=== PATIENT | female | born 1950 | race Hispanic/Latino ===

== ENCOUNTER 2016-12-31 19:03 | Emergency (ER) | payer BC, MEDICARE ==
[2016-12-31 19:04] VITALS: BMI 42.0
[2016-12-31 19:19] VITALS: TEMP 97.4
[2016-12-31] MEDS ORDERED: TDAP Vaccine 0.5 mL Syr IM ONE (19:45)
--- NOTE | 2016-12-31 21:18 | ED PDOC ---
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 Patient reports she tripped and fell, hitting the back of her head. She notes posterior head laceration. She denies loss of consciousness, vomiting, or headache. Time/Duration: 4-6 hours Symptom Onset: Sudden Activities at Onset: Rest Context: Tripped Past Medical History - Provider Review Nursing Documentation Reviewed: Yes - Infectious Disease Hx of Infectious Diseases: None - Tetanus Immunization Tetanus Immunization: Unknown - Cardiac Hx Cardiac Disorders: No Hx Pacemaker: No - Pulmonary Hx Respiratory Disorders: No - Neurological Hx Neurological Disorder: No Hx Paralysis: No - HEENT Hx HEENT Disorder: No - Renal Hx Renal Disorder: No - Endocrine/Metabolic Hx Endocrine Disorders: Yes Hx Diabetes Mellitus Type 2: Yes - Hematological/Oncological Hx Blood Disorders: No Hx Blood Transfusions: No Hx Blood Transfusion Reaction: No Hx Cancer: Yes (history of left breast) - Integumentary Hx Dermatological Disorder: No - Musculoskeletal/Rheumatological Hx Musculoskeletal Disorders: Yes (RA) - Gastrointestinal Hx Gastrointestinal Disorders: Yes Hx Gastroesophageal Reflux: Yes - Genitourinary/Gynecological Hx Genitourinary Disorders: Yes Other/Comment: breast ca - Psychiatric Hx Anxiety: Yes Hx Depression: Yes Hx Substance Use: No - Surgical History Hx Appendectomy: Yes Hx Section: Yes 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) Other/Comment: left breast lumpectomy - Anesthesia Hx Anesthesia Reactions: No Hx Malignant Hyperthermia: No - Suicidal Assessment Feels Threatened In Home Enviroment: No Family/Social History - Physician Review Nursing Documentation Reviewed: Yes Family/Social History: Unknown Family HX Smoking Status: Never Smoked Hx Alcohol Use: No Hx Substance Use: No Hx Substance Use Treatment: No Allergies/Home Meds Allergies/Adverse Reactions: Allergies ciprofloxacin [From Cipro] Adverse Reaction (Verified 12/31/16 19:10) VOMITING ciprofloxacin HCl [From Cipro] Adverse Reaction (Verified 12/31/16 19:10) VOMITING codeine Adverse Reaction (Verified 12/31/16 19:10) VOMITING Home Medications: Home Meds Medication Instructions Recorded Confirmed Aspirin [Aspir 81] 81 mg PO DAILY 11/12/13 12/31/16 Celecoxib [Celebrex] 200 mg PO DAILY 11/12/13 12/31/16 DULoxetine [Cymbalta] 60 mg PO BID 11/12/13 12/31/16 Etanercept [Enbrel] 50 mg PO WED 11/12/13 12/31/16 Folic Acid 1 mg PO DAILY 11/12/13 12/31/16 Lorazepam [Ativan] 1 mg PO TID 11/12/13 12/31/16 Rosuvastatin Calcium [Crestor] 10 mg PO QAM 11/12/13 12/31/16 Vitamin D 1,000 iu PO QPM 11/12/13 12/31/16 Evening [place] Oil 2 tab PO HS 09/01/15 12/31/16 Glipizide [Glipizide ER] 2.5 mg PO QAM 09/01/15 12/31/16 Methotrexate 2.5 mg PO WED 09/01/15 12/31/16 Ranitidine HCl [Zantac 150] 150 mg PO BID 12/11/15 12/31/16 Physical Exam - Physical Exam Narrative Physical Exam (Text): 12/31/16 21:21 - Review of Systems Constitutional: Normal. absent: LOC, Fatigue, Weight Change, Fevers Eyes: Normal ENT: Normal Respiratory: Normal absent: SOB, Cough, Sputum Cardiovascular: Normal absent: Chest pain, Palpitations, Syncope Gastrointestinal: Normal absent: Abdominal pain, Diarrhea, Nausea, Vomiting Genitourinary: Normal. absent: Dysuria, Frequency, Hematuria Musculoskeletal: Normal. absent: Arthralgias, Back Pain, Neck Pain Skin: laceration to posterior head Neurological: Normal absent: Headache, Focal Weakness Endocrine: Normal Hemo/Lymphatic: Normal Psychiatric: Normal - Physical exam 1.5 cm posterior occipital laceration, no active bleeding, 4mm in depth. No nasal bone deformity or tenderness, no facial or jaw pain/swelling. No neck midline tenderness, thoracic and lumbar spine with no midline tenderness. Pt moving b/l upper and lower extremities without difficulty, 5/5 strength, with full active and passive ROM. Distal neurovasc fully intact. Abd soft/nt/ng, no hematomas, no peritoneal signs. Neg. pelvic rock. - Systems Exam Pupils: Present: PERRL Extroacular Muscles: Present: EOMI Conjunctiva: Present: Normal Mouth: Present: Moist Mucous Membranes Neck: Present: Normal Range of Motion. No: MIDLINE TENDERNESS, Paraspinal Tenderness Respiratory/Chest: Present: Clear to Auscultation, Good Air Exchange. No: Respiratory Distress, Accessory Muscle Use, Tachypneic Cardiovascular: Present: Regular Rate and Rhythm, Normal S1, S2, Peripheal Pulses Present. No: Murmurs Abdomen: Present: Normal Bowel Sounds. No: Tenderness, Distention, Peritoneal Signs, Rebound, Guarding Back: Present: Normal Inspection. No: Midline Tenderness, Paraspinal Tenderness Upper Extremity: Present: Normal Inspection. No: Cyanosis, Edema Lower Extremity: Present: Normal Inspection. No: Edema Neurological: Present: GCS=15, Speech Normal, cranial nerves II through XII fully intact with no cerebellar abnormality, neurosensory fully intact. No focal neurological deficits. Skin: Present: Warm, Dry, Normal Color. No: Rashes Lymphatic: Present: OX3, NI, NC Psychiatric: Present: Alert, Oriented x 3, Normal Insight, Normal Concentration Vital Signs Reviewed: Yes Vital Signs Temp Pulse Resp BP Pulse Ox 12/31/16 19:13 97.4 F L 104 H 19 108/73 99 Temperature: Afebrile Blood Pressure: Normal Pulse: Regular Respiratory Rate: Normal Appearance: Positive for: Well-Appearing, Non-Toxic, Comfortable Pain Distress: None Mental Status: Positive for: Alert and Oriented X 3 Finger Stick Blood Glucose: 75 Medical Decision Making ED Course and Treatment: 12/31/16 21:23 Impression: 66 year old female s/p mechanical fall. Physical exam revealed 1.5 cm posterior occipital laceration, no active bleeding, 4mm in depth. Plan: --CT Head --TDAP Vaccine -- Reassess and disposition Progress Notes: 12/31/16 21:26 PROCEDURE: LACERATION REPAIR Performed by the emergency provider Location: posterior occipital Length: 1.5 cm Description: clean wound edges, no foreign bodies Distal CMS: Normal. No deficits. Neurovascularly intact. Preparation: The wound was cleaned and the area was prepped and draped in the usual sterile fashion. Exploration: The wound was explored and no foreign bodies were found. Procedure: The wound was closed with melly. There was good approximation. Post-Procedure: Good closure and hemostasis. The patient tolerated the procedure well and there were no complications. CT Head pending. Patient in no distress. EKG: Ordered, reviewed, and independently interpreted the EKG. Rate : 67 BPM Rhythm : NSR Interpretation : No ST-segment elevations, normal axis, normal intervals. Interpreted by me. Comparison : No previous EKG for comparison. 12/31/16 21:36 IMPRESSION: No acute intracranial findings. Right suboccipital scalp hematoma/contusion with extension to the occipital scalp with minimal subcutaneous gas which is thought to relate to a left midline occipital laceration. Dictated and Authenticated by: Kenneth Berry MD Patient's has no focal neurological deficits on reevaluation. She denies having a headache. States that she feels comfortable being discharged home with outpatient follow-up. Pt states she understands to return to the ER right away for new or worsening symptoms or for inability to f/u with PMD or specialist as instructed. Patient states that she fully agrees with and understands discharge instructions. States that she agrees with the plan and disposition. Verbalized and repeated discharge instructions and plan. I have given the patient opportunity to ask any additional questions. - RAD Interpretation Radiology Orders: 12/31/16 19:46 HEAD W/O CONTRAST [CT] Stat - Medication Orders Current Medication Orders: Discontinued Medications Tetanus/Reduced Diphtheria/Acell Pertussis (Boostrix Vaccine Inj) 0.5 ml IM .ONCE ONE Stop: 12/31/16 19:46 Last Admin: 12/31/16 19:56 Dose: 0.5 ML [facility] Immunization Data Document 12/31/16 19:56 SF (Rec: 12/31/16 19:57 SF [facility] [id number] Immunization Data Vaccine Lot Number [id number] Vaccine Expiration Date 12/30/18 Site Given Left Deltoid Route Intramuscular - Scribe Statement The provider has reviewed the documentation as recorded by the Scribe Renetta Ag Provider Scribe Attestation: All medical record entries made by the Scribe were at my direction and personally dictated by me. I have reviewed the chart and agree that the record accurately reflects my personal performance of the history, physical exam, medical decision making, and the department course for this patient. I have also personally directed, reviewed, and agree with the discharge instructions and disposition. Disposition/Present on Arrival - Present on Arrival Any Indicators Present on Arrival: No History of DVT/PE: No History of Uncontrolled Diabetes: Yes Urinary Catheter: No History of Decub. Ulcer: No History Surgical Site Infection Following: None - Disposition Have Diagnosis and Disposition been Completed?: Yes Diagnosis: Head injury Disposition: HOME/ ROUTINE Disposition Time: 21:38 Patient Plan: Discharge Condition: GOOD Discharge Instructions (ExitCare): Head Injury (ED), Fall Prevention for Older Adults (ED) Additional Instructions: PLEASE RETURN TO THE EMERGENCY DEPARTMENT FOR NEW OR WORSENING SYMPTOMS. RETURN RIGHT AWAY IF YOU CANNOT FOLLOW UP WITH YOUR PRIMARY CARE DOCTOR, CLINIC, OR SPECIALIST IN 1-2 DAYS. PLEASE RETURN TO THE ER OR YOUR PRIMARY PHYSICIAN IN 7 DAYS FOR STAPLE REMOVAL KEEP WOUND CLEAN AND DRY APPLY ANTI-BACTERIAL OINTMENT TWICE A DAY (over the counter per pharmacy instructions) Please take [id number] Tylenol for pain
[2016-12-31 21:37] VITALS: BP 130/70; PULSE 90
[2016-12-31 21:44] VITALS: RESP 16; O2SAT 98
--- NOTE | 2017-01-01 08:14 | CT ---
PROCEDURE: CT HEAD WITHOUT CONTRAST. HISTORY: Fall COMPARISON: None available. TECHNIQUE: Axial computed tomography images were obtained through the head/brain without intravenous contrast. Radiation dose: Total exam DLP = 725.84 mGy-cm. FINDINGS: HEMORRHAGE: No intracranial hemorrhage. BRAIN: There are mild chronic microangiopathic changes. There is no mass, mass effect or abnormal extra-axial fluid collection. There is normal density in the larger dural venous sinuses. VENTRICLES: There is mild age-related global parenchymal volume loss and proportionate enlargement of the ventricles and cortical sulci. CALVARIUM: There is no calvarial fracture. There is a moderate right parieto-occipital scalp hematoma and left parietal laceration. . PARANASAL SINUSES: Predominantly clear. MASTOID AIR CELLS: Predominantly clear. OTHER FINDINGS: None. IMPRESSION: No acute intracranial abnormality. Moderate right parieto-occipital scalp hematoma. A preliminary report was provided by [facility] services.
== END 2016-12-31 22:00 | disposition home or self-care (01) ==
LOC: ED 19:03
DX: S01.01XA Laceration without foreign body of scalp, initial encounter (principal); W01.0XXA Fall on same level from slipping, tripping and stumbling without subsequent striking against object, initial encounter; Y92.9 Unspecified place or not applicable; E11.9 Type 2 diabetes mellitus without complications; Z23 Encounter for immunization

== ENCOUNTER 2017-01-08 17:35 | Emergency (ER) | payer MEDICARE, BC ==
--- NOTE | 2017-01-08 18:26 | ED PDOC ---
Arrival/HPI - General Time Seen by Provider: 01/08/17 18:22 Historian: Patient - History of Present Illness Narrative History of Present Illness (Text): 01/08/17 18:22 Patient reports injuring her L hand when she fell 6 days ago. Presents to the ER today due to continued pain, swelling and bruising. Otherwise: (-) other injury, (-) numbness. TRINIDAD Mckeon Past Medical History - Provider Review Nursing Documentation Reviewed: Yes - Infectious Disease Hx of Infectious Diseases: None - Tetanus Immunization Tetanus Immunization: Unknown - Cardiac Hx Cardiac Disorders: No Hx Pacemaker: No - Pulmonary Hx Respiratory Disorders: No - Neurological Hx Neurological Disorder: No Hx Paralysis: No - HEENT Hx HEENT Disorder: No - Renal Hx Renal Disorder: No - Endocrine/Metabolic Hx Endocrine Disorders: Yes Hx Diabetes Mellitus Type 2: Yes - Hematological/Oncological Hx Blood Disorders: No Hx Blood Transfusions: No Hx Blood Transfusion Reaction: No Hx Cancer: Yes (history of left breast) - Integumentary Hx Dermatological Disorder: No - Musculoskeletal/Rheumatological Hx Musculoskeletal Disorders: Yes (RA) - Gastrointestinal Hx Gastrointestinal Disorders: Yes Hx Gastroesophageal Reflux: Yes - Genitourinary/Gynecological Hx Genitourinary Disorders: Yes Other/Comment: breast ca - Psychiatric Hx Anxiety: Yes Hx Depression: Yes Hx Substance Use: No - Surgical History Hx Appendectomy: Yes Hx Section: Yes 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) Other/Comment: left breast lumpectomy - Anesthesia Hx Anesthesia Reactions: No Hx Malignant Hyperthermia: No - Suicidal Assessment Feels Threatened In Home Enviroment: No Family/Social History - Physician Review Nursing Documentation Reviewed: Yes Family/Social History: No Known Family HX Smoking Status: Never Smoked Hx Alcohol Use: No Hx Substance Use: No Hx Substance Use Treatment: No Allergies/Home Meds Allergies/Adverse Reactions: Allergies ciprofloxacin [From Cipro] Adverse Reaction (Verified 01/08/17 18:33) VOMITING codeine Adverse Reaction (Verified 01/08/17 18:33) VOMITING Home Medications: Home Meds Medication Instructions Recorded Confirmed Aspirin [Aspir 81] 81 mg PO DAILY 11/12/13 12/31/16 Celecoxib [Celebrex] 200 mg PO DAILY 11/12/13 12/31/16 DULoxetine [Cymbalta] 60 mg PO BID 11/12/13 12/31/16 Etanercept [Enbrel] 50 mg PO WED 11/12/13 12/31/16 Folic Acid 1 mg PO DAILY 11/12/13 12/31/16 Lorazepam [Ativan] 1 mg PO TID 11/12/13 12/31/16 Rosuvastatin Calcium [Crestor] 10 mg PO QAM 11/12/13 12/31/16 Vitamin D 1,000 iu PO QPM 11/12/13 12/31/16 Evening [place] Oil 2 tab PO HS 09/01/15 12/31/16 Glipizide [Glipizide ER] 2.5 mg PO QAM 09/01/15 12/31/16 Methotrexate 2.5 mg PO WED 09/01/15 12/31/16 Ranitidine HCl [Zantac 150] 150 mg PO BID 12/11/15 12/31/16 Review of Systems - Review of Systems Constitutional: Normal. absent: Fatigue, Fevers Musculoskeletal: Normal, Arthralgias. absent: Back Pain Skin: Normal. absent: Rash, Pruritis, Skin Lesions Physical Exam - Physical Exam Narrative Physical Exam (Text): 01/08/17 18:24 GENERAL APPEARANCE: Patient is awake, alert, oriented x 3, in no acute distress. SKIN: Warm, (-) rash, (-) lesions. UPPER EXTREMITY: (+) Mild tenderness, swelling, and ecchymosis of dorsal aspect of the L hand over the 3rd-4th-5th metacarpal; (-) crepitus, (-) deformity. Tendon function intact. (-) distal neurovascular deficit. 2 point discrimination. Remainder of hand, digits and wrist: (-) injury. Vital Signs Temp Pulse Resp BP Pulse Ox 01/08/17 18:27 97.9 F 109 H 20 135/80 94 L Medical Decision Making ED Course and Treatment: 01/08/17 18:24 66 yo F presents with L hand injury 6 days ago. XR L hand ordered. Patient is refusing any analgesic medications at this time. XR L hand: fracture to the 5th metacarpal head, no dislocation, as read by PA Patient advised that official radiology read of XR is still pending and will call the patient if there is any discrepancy within 24 hours. XR results discussed with the patient in great detail. Orthoglass ulnar gutter splint applied to the hand by ANTHONY, neurovascular intact post splint application. Based on history, exam and diagnostic results plan will be for outpatient follow -up. Patient states she fully agrees with and understands discharge instructions. States that she agrees with the plan and disposition. Verbalized and repeated discharge instructions and plan. I have given the patient opportunity to ask any additional questions. Follow up with ortho and plastics referral in 1-2 days without fail. Return to the emergency room at any time for any new or worsening symptoms. - RAD Interpretation Radiology Orders: 01/08/17 18:33 HAND LEFT 3 VIEWS ROUTINE [RAD] Stat - PA / MEAT AND SEAFOOD MANAGER / Resident Statement MD/DO has reviewed & agrees with the documentation as recorded. Disposition/Present on Arrival - Present on Arrival Any Indicators Present on Arrival: Yes History of DVT/PE: No History of Uncontrolled Diabetes: Yes Urinary Catheter: No History Surgical Site Infection Following: None - Disposition Have Diagnosis and Disposition been Completed?: Yes Diagnosis: Hand fracture, left Disposition: HOME/ ROUTINE Disposition Time: 19:00 Patient Plan: Discharge Condition: STABLE Discharge Instructions (ExitCare): Hand Fracture (ED) Print Language: INDIAN Additional Instructions: Thank you for letting us take care of you today. You were treated for L hand fracture. The emergency medical care you received today was directed at your acute symptoms. Return to the Emergency Department if your symptoms worsen, do not improve, or if you have any other problems. Please contact your doctor in 2 days for re-evaluation and follow up / or call one of the physicians/clinics you have been referred to that are listed on the Patient Visit Information form that is included in your discharge packet. Bring any paperwork you were given at discharge with you along with any medications you are taking to your follow up visit. Our treatment cannot replace ongoing medical care by a primary care provider (PCP) outside of the emergency department. Thank you for allowing the [facility] team to be part of your care today. Referrals: Travis Mckeon MD [Primary Care Provider] - Follow up with primary Kenneth Rivas III, MD [Medical Doctor] - Follow up with primary Ben Contreras MD [Staff Provider] - Follow up with primary
[2017-01-08 18:32] VITALS: BP 135/80; PULSE 109; TEMP 97.9
[2017-01-08 18:33] VITALS: BMI 38.5
[2017-01-08 20:05] VITALS: RESP 16; O2SAT 98
--- NOTE | 2017-01-09 09:12 | RAD ---
PROCEDURE: Left Hand Radiographs. HISTORY: pain COMPARISON: None. FINDINGS: BONES: Normal. No fracture. JOINTS: Normal. No osteoarthritic changes. SOFT TISSUES: Normal. OTHER FINDINGS: None. IMPRESSION: Normal left hand radiographs.
== END 2017-01-08 20:05 | disposition home or self-care (01) ==
LOC: ED 17:35
DX: S62.92XA Unspecified fracture of left hand, initial encounter for closed fracture (principal); W19.XXXA Unspecified fall, initial encounter; E11.9 Type 2 diabetes mellitus without complications

== ENCOUNTER 2017-11-22 06:21 | Day surgery (SDC) | payer MEDICARE, BC ==
[2017-11-11 12:08] VITALS: BMI 39.9
[2017-11-22 07:24] LABS: PH,URINE 5.5 (4.7-8.0); URINE BILIRUBIN NEGATIVE (NEGATIVE); URINE BLOOD NEGATIVE (NEGATIVE); URINE COLOR YELLOW (YELLOW); URINE GLUCOSE (UA) NEGATIVE (NEGATIVE); URINE LEUKOCYTE ESTERASE MODERATE Leu/uL (NEGATIVE); URINE NITRATE POSITIVE (NEGATIVE); URINE PROTEIN NEGATIVE mg/dL (<30 mg/dL); URINE UROBILINOGEN 0.2 E.U./dL (<1 E.U./dL)
[2017-11-22 07:25] LABS: URINE APPEARANCE SLIGHT-CLOUDY (CLEAR)
[2017-11-22] MEDS ORDERED: Propofol 10 mg/ml Inj (20 ML) ONE (07:44)
[2017-11-22] MEDS ORDERED: Midazolam 2 MG/2 ML VIAL ONE (07:45)
[2017-11-22] MEDS ORDERED: Rocuronium 10 mg/ml (5 ml) ONE (07:46)
[2017-11-22 07:48] LABS: URINE RBC 0 - 2 /hpf (0-2)
[2017-11-22 07:49] LABS: URINE AMORPHOUS SEDIMENT FEW; URINE BACTERIA MANY (NEG); URINE WBC 20 - 25 /hpf (0-6)
[2017-11-22] MEDS ORDERED: Morphine 1 mg/ml preservative-free Inj(Duramorph) ONE ×2 (07:54→09:24)
[2017-11-22] MEDS ORDERED: Bupivacaine 0.5% Inj(30mL) ONE (07:54)
[2017-11-22] MEDS ORDERED: cefTRIAXone (Rocephin) 1 gm Inj ONE (08:16)
[2017-11-22] MEDS ORDERED: Lidocaine 1% w Epi 1:100,000 Inj ONE (08:18)
[2017-11-22] MEDS ORDERED: cefTRIAXone 1 GM in NS 100 ML BAG IVPB ONE (08:20)
[2017-11-22] MEDS ORDERED: Labetalol 5 mg/ml Inj 20ML ONE (08:40)
[2017-11-22] MEDS ORDERED: Lidocaine 1%/Epinephrine 1:100000 30 ml vial IJ ONE (08:43)
[2017-11-22] MEDS ORDERED: Neostigmine Methylsulfate 3mg/3ml Syringe IV ONE (10:56)
[2017-11-22] MEDS ORDERED: HYDROmorphone 0.5 mg/0.5 ml ISec IVP PRN (11:38)
[2017-11-22] MEDS ORDERED: Lactated Ringer's 1,000 ML IV SCH (11:45)
--- NOTE | 2017-11-22 11:55 | PCM.SURG1 ---
Surgeon's Initial Post Op Note - Surgeon's Notes Surgeon: Salvatore Rubio MD Elevator Erector: Norah Morgan PA-C Type of Anesthesia: General Endo Anesthesia Administered By: Dr. Laws Pre-Operative Diagnosis: Left shoulder rotator cuff tear Operative Findings: see full note Post-Operative Diagnosis: same Operation Performed: Left shoulder arthroscopic rotator cuff repair, acromioplasty, biceps tenotomy Specimen/Specimens Removed: none Estimated Blood Loss: EBL {In ML}: 10 Blood Products Given: N/A Drains Used: No Drains Post-Op Condition: Fair Date of Surgery/Procedure: 11/22/17 Time of Surgery/Procedure: 11:49 Results - Vital Signs Recent Vital Signs: Last Vital Signs Temp 98 F 11/22/17 11:32 Pulse 77 11/22/17 11:32 Resp 16 11/22/17 11:32 BP 106/66 11/22/17 11:32 Pulse Ox 99 11/22/17 11:32 - Labs Labs: Laboratory Results - last 24 hr 11/22/17 11/22/17 06:45 07:09 POC Glucose (mg/dL) 96 Urine Color Yellow Urine Appearance Slight-cloudy Urine pH 5.5 Ur Specific [place] 1.025 Urine Protein Negative Urine Glucose (UA) Negative Urine Ketones Negative Urine Blood Negative Urine Nitrate Positive H Urine Bilirubin Negative Urine Urobilinogen 0.2 Ur Leukocyte Esterase Moderate H Urine RBC 0 - 2 Urine WBC 20 - 25 Ur Epithelial Cells 4 - 5 Amorphous Sediment Few Urine Bacteria Many - Impressions Impression: [place]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 Patient counseled on the risks of addiction, physical or psychological dependence, and overdose associated with opioid drugs and the danger of taking opioid drugs with alcohol and other central nervous system depressants, and cautioned patient on storage and disposal.
[2017-11-22 16:32] VITALS: RESP 18
[2017-11-22 17:41] VITALS: O2SAT 96
[2017-11-22 17:52] VITALS: BP 119/68; PULSE 98; TEMP 98.2
--- NOTE | 2017-11-22 23:30 | OP ---
PROCEDURE DATE: 11/22/2017 PREOPERATIVE DIAGNOSES: Left shoulder rotator cuff tear and impingement. POSTOPERATIVE DIAGNOSES: Left shoulder rotator cuff tear, impingement and biceps tendon tear. PROCEDURE: Left shoulder arthroscopy with arthroscopic rotator cuff repair, subacromial decompression and biceps tenotomy. SURGEON: Rafael Rubio Md. HVAC DESIGN ENGINEER: Dr. Rubio was assisted by Lilly Ngo, physician dental office assistant. Ms. Ngo was scrubbed and present throughout the entire case and helped with patient positioning, holding the arthroscope during the repair as well as wound closure. ANESTHESIA: General. COMPLICATIONS: None. ESTIMATED BLOOD LOSS: 10 mL. OPERATIVE INDICATIONS: This is a 67-year-old female, who presented with complaints of left shoulder pain. Clinical examination was consistent with pain with resisted abduction and forward flexion, positive Snow sign. Patient was noted to have some weakness with forward flexion. CT with intraarticular contrast examination was consistent with what looked like a near to full thickness tear of the supraspinatus. After a period of failed nonsurgical management, recommendation was for a left shoulder arthroscopy. The risks, benefits, and alternatives of the procedure were discussed with the patient and informed consent was obtained. OPERATIVE PROCEDURE: After the surgical site was signed and verified in the preoperative holding area, the patient was taken to the operating room and placed supine on the operating room table. After the patient received 1 g of Rocephin IV, patient was positioned in the lateral decubitus position with the left shoulder up towards the ceiling. Care was taken to make sure all bony prominences and nerves were well padded and protected. An axillary roll was placed in the right axilla. Venodyne boots were placed on the bilateral lower extremities and the left upper extremity was prepped and draped in the usual sterile fashion. Bony landmarks were identified about the left upper extremity and the portal sites were injected with a total of 10 mL of 1% lidocaine with epi. Posterior arthroscopy portal was established and arthroscope was inserted into the glenohumeral joint. The chondral surface of the glenohumeral head were noted to have some grade I changes. The biceps tendon was also visualized and appeared to have at least a 50% tear with some fraying of the biceps noted distally at the level of the intertubercular groove. At this point, decision was made to perform a biceps tenotomy and this was done using the electrocautery device and full radius shaver. The anterior, inferior and posterior labrum appeared to be intact. No loose bodies were appreciated. The supraspinatus was noted to have significant articular sided fraying and this was debrided using a full radius shaver. Subscapularis was identified and appeared to be intact. At this point, the arthroscope was inserted posteriorly into the subacromial space. A lateral port was established and a bursectomy was performed, which gave excellent visualization of the undersurface of the acromion as well as the rotator cuff. Satisfied that the subacromial space have been adequately decompressed, our attention was directed to the rotator cuff. a small, but full thickness tear at the midsubstance of the supraspinatus tendon with some extension into almost the footprint of the tear. Decision was made to do margin convergence repair and this was done by passing 4 sutures across the tear and then tying it down arthroscopically. Once this was done, the edges of the tear were noted to be firmly apposed and the rotator cuff footprint appeared to be intact. At this point, all the instruments were removed and all the portal sites were closed using interrupted 2-0 Vicryl suture and 3-0 nylon. A sterile dressing was applied. The left upper extremity was and placed in a sling. Patient was awakened from anesthesia and taken to the recovery room in stable condition. Rafael Rubio MD
== END 2017-11-22 17:40 | disposition home or self-care (01) ==
LOC: SDS 06:21
PROVIDERS: ATTEND Orthopaedic Surgery
DX: M75.102 Unspecified rotator cuff tear or rupture of left shoulder, not specified as traumatic (principal); M75.42 Impingement syndrome of left shoulder; S46.212A Strain of muscle, fascia and tendon of other parts of biceps, left arm, initial encounter
CPT/HCPCS: 29826; 29827; 29828; 81001; 82948; C1713; J0131; J0171; J0690; J0696; J1170; J1885; J2250; J2270; J2704; J2710; J3010 ×2; J7120 ×2

== ENCOUNTER 2018-04-01 19:42 | Emergency (ER) | payer MEDICARE, BC ==
[2018-04-01 19:42] VITALS: BMI 39.9
[2018-04-01 20:07] VITALS: BP 133/81; PULSE 76; RESP 18; TEMP 97.6; O2SAT 100
--- NOTE | 2018-04-01 20:19 | ED PDOC ---
Arrival/HPI - General Historian: Patient - History of Present Illness Time/Duration: < week Symptom Course: Unchanged Quality: Tightness Severity Level: 7 Activities at Onset: Rest - General Chief Complaint: Chest Pain Time Seen by Provider: 04/01/18 19:51 - History of Present Illness Narrative History of Present Illness (Text): 67 year old female presents with non radiating, reproducible chest pain which began 3 days ago. Patient states she feels mid sternal tightness began 3 days ago, associated with shortness of breath, nausea, diaphoresis, and pain on inspiration. Patient denies abdominal pain, fver, chills, or any other complaints. Patient took her aspirin this AM. 04/01/18 20:16 (Nolberto Morelos) Past Medical History - Provider Review Nursing Documentation Reviewed: Yes - Infectious Disease Hx of Infectious Diseases: None - Tetanus Immunization Tetanus Immunization: Unknown - Cardiac Hx Cardiac Disorders: No - Pulmonary Hx Respiratory Disorders: No - Neurological Hx Neurological Disorder: No - HEENT Hx HEENT Disorder: No - Renal Hx Renal Disorder: No - Endocrine/Metabolic Hx Endocrine Disorders: Yes Hx Diabetes Mellitus Type 2: Yes - Hematological/Oncological Hx Blood Disorders: Yes Hx Cancer: Yes - Integumentary Hx Dermatological Disorder: No - Musculoskeletal/Rheumatological Hx Musculoskeletal Disorders: Yes Hx Rheumatoid Arthritis: Yes - Gastrointestinal Hx Gastrointestinal Disorders: Yes Hx Gastroesophageal Reflux: Yes - Genitourinary/Gynecological Hx Genitourinary Disorders: No - Psychiatric Hx Psychophysiologic Disorder: Yes Hx Anxiety: Yes Hx Substance Use: No - Surgical History Hx Appendectomy: Yes Hx Orthopedic Surgery: Yes (L SHOULDER) Other/Comment: LUMPECTOMY - Anesthesia Hx Anesthesia Reactions: No Hx Malignant Hyperthermia: No - Suicidal Assessment Feels Threatened In Home Enviroment: No Family/Social History - Physician Review Nursing Documentation Reviewed: Yes Family/Social History: No Known Family HX Smoking Status: Never Smoked Hx Alcohol Use: No Hx Substance Use: No Hx Substance Use Treatment: No Allergies/Home Meds Allergies/Adverse Reactions: Allergies ciprofloxacin [From Cipro] Adverse Reaction (Severe, Verified 04/01/18 19:48) VOMITING codeine Adverse Reaction (Severe, Verified 04/01/18 19:48) VOMITING Home Medications: Home Meds Medication Instructions Recorded Confirmed Aspirin [Aspir 81] 81 mg PO DAILY 11/12/13 04/01/18 DULoxetine [Cymbalta] 60 mg PO BID 11/12/13 04/01/18 Lorazepam [Ativan] 1 mg PO TID 11/12/13 04/01/18 Rosuvastatin Calcium [Crestor] 10 mg PO QAM 11/12/13 04/01/18 Glipizide [Glipizide ER] 10 mg PO BID 09/01/15 04/01/18 Celecoxib [Celebrex] 200 mg PO DAILY 10/18/17 04/01/18 Cholecalciferol [Vitamin D] 1,000 iu PO DAILY 10/18/17 04/01/18 Etanercept [Enbrel] 50 mg SC WED 10/18/17 04/01/18 Evening [place] Oil 2 cap PO DAILY 10/18/17 04/01/18 Folic Acid 1 mg PO DAILY 10/18/17 04/01/18 Insulin Degludec [Tresiba 10 unit SQ QAM 10/18/17 04/01/18 Flextouch U-100] Linagliptin [Tradjenta] 5 mg PO DAILY 10/18/17 04/01/18 Methotrexate 6 tab PO WED 10/18/17 04/01/18 Review of Systems - Review of Systems Constitutional: Normal. absent: Fevers Eyes: Normal. absent: Vision Changes ENT: Normal Respiratory: SOB. absent: Sputum, Wheezing Cardiovascular: Chest Pain. absent: Palpitations, Syncope Gastrointestinal: Nausea. absent: Abdominal Pain, Vomiting Musculoskeletal: Normal Skin: Normal Neurological: Normal. absent: Headache, Dizziness, Focal Weakness Endocrine: Diaphoresis Hemo/Lymphatic: Normal Psychiatric: Normal Physical Exam Vital Signs Reviewed: Yes Temperature: Afebrile Blood Pressure: Normal Pulse: Regular Respiratory Rate: Normal Appearance: Positive for: Well-Appearing, Non-Toxic, Comfortable Pain Distress: Mild Mental Status: Positive for: Alert and Oriented X 3 - Systems Exam Head: Present: Atraumatic, Normocephalic Pupils: Present: PERRL Extroacular Muscles: Present: EOMI Conjunctiva: Present: Normal Mouth: Present: Moist Mucous Membranes Respiratory/Chest: Present: Clear to Auscultation, Good Air Exchange. No: Wheezes, Rales, Rhonchi Cardiovascular: Present: Regular Rate and Rhythm, Normal S1, S2, Peripheal Pulses Present. No: Murmurs, Tachycardic Abdomen: Present: Normal Bowel Sounds. No: Tenderness, Distention Upper Extremity: No: Edema Lower Extremity: No: Edema Neurological: Present: GCS=15 Skin: Present: Warm, Dry Vital Signs Temp Pulse Resp BP Pulse Ox 04/01/18 20:07 97.6 F 76 18 133/81 100 Medical Decision Making - Lab Interpretations I have reviewed the lab results: Yes ED Course and Treatment: 04/01/18 21:50 Patient Seen With Resident: In agreement with resident note which contains more details about the patient. Patient was seen and evaluated with resident. Came up with plan and treatment together.. The patient declines admission, and wishes to leave the Emergency Department. This action is against my medical advice to the patient and the decision was made with informed refusal. The patient was told that admission is necessary and a full explanation of the rationale was given. The risks of leaving were explained to the patient and include, but are not limited to, worsening of known or currently unknown conditions, permanent disability and from undiagnosed or untreated conditions The patient has the capacity to make this informed decision and understands the clinical situation and my explanation of the risks of leaving. The patient voluntarily accepts these risks, and a signed AMA form documenting our conversation was obtained. The patient was given the opportunity to ask questions and reconsider. The patient was encouraged to return to the Emergency Department at any time for further care. (Travis Ambrose) Plan -EKG, Chest Xray, ddimer -Magnesium, CBC, CMP, cardiac ISO -coags -reasses 04/01/18 20:21 Patient wants to sign out AMA, risks were discussed and patient signed out AMA paperwork 04/01/18 21:51 (Nolberto Morelos) - Lab Interpretations Lab Results: 04/01/18 19:55 04/01/18 19:55 Lab Results 04/01/18 20:25: Urine Color Yellow, Urine Appearance Clear, Urine pH 6.0, Ur Specific [place] 1.020, Urine Protein Negative, Urine Glucose (UA) Negative, Urine Ketones Negative, Urine Blood Negative, Urine Nitrate Negative, Urine Bilirubin Negative, Urine Urobilinogen 2.0 H, Ur Leukocyte Esterase Small H, Urine RBC Negative, Urine WBC 2 - 5, Ur Epithelial Cells 1 - 3, Urine Bacteria Few 04/01/18 19:55: APTT 31.6, D-Dimer, Quantitative 234 04/01/18 19:55: Sodium 143, Potassium 3.6, Chloride 103, Carbon Dioxide 28, Anion Gap 16, BUN 14, Creatinine 0.6 L, Est GFR ( Amer) > 60, Est GFR ( Non-Af Amer) > 60, Random Glucose 79, Calcium 9.1, Magnesium 1.9, Total Bilirubin 0.5, AST 21, ALT 24, Alkaline Phosphatase 65, Lactate Dehydrogenase 387, Total Creatine Kinase 42, Troponin I < 0.01, NT-Pro-B Natriuret Pep 311, Total Protein 7.3, Albumin 4.2, Globulin 3.1, Albumin/Globulin Ratio 1.3 04/01/18 19:55: WBC 10.5 D, RBC 4.73, Hgb 13.5, Hct 41.4, MCV 87.5 D, MCH 28.5 , MCHC 32.6, RDW 15.0 H, Plt Count 275, MPV 10.1, Gran % 60.6, Lymph % (Auto) 30.0, [place] % (Auto) 5.7, Eos % (Auto) 3.1, Baso % (Auto) 0.6, Gran # 6.35, Lymph # (Auto) 3.1, [place] # (Auto) 0.6, Eos # (Auto) 0.3, Baso # (Auto) 0.06 - RAD Interpretation Radiology Orders: 04/01/18 20:09 CHEST PORTABLE [RAD] Stat Disposition/Present on Arrival - Present on Arrival Any Indicators Present on Arrival: No History of DVT/PE: No History of Uncontrolled Diabetes: Yes Urinary Catheter: No History of Decub. Ulcer: No History Surgical Site Infection Following: None - Disposition Have Diagnosis and Disposition been Completed?: Yes Disposition Time: 21:53 - Disposition Diagnosis: Chest pain Disposition: AGAINST MEDICAL ADVICE Condition: FAIR Discharge Instructions (ExitCare): Chest Pain (ED) Referrals: Dung Cervantes MD [Primary Care Provider] - Follow up with primary Forms: [employer] (Bangladeshi)
[2018-04-01 20:23] LABS: BASO # 0.06 K/mm3 (0.0-2.0); BASO % 0.6 % (0.0-3.0); EOS # 0.3 (0.0-0.7); EOS % 3.1 % (1.5-5.0); GRAN # 6.35 (1.4-6.5); GRAN % 60.6 % (50.0-68.0); HEMOGLOBIN 13.5 g/dL (12.0-16.0); LYMPH # 3.1 (1.2-3.4); MEAN CELL VOLUME 87.5 fl (80.0-105.0); MEAN CORPUSCULAR HEMOGLOBIN 28.5 pg (25.0-35.0); MEAN CORPUSCULAR HGB CONC 32.6 g/dl (31.0-37.0); MEAN PLATELET VOLUME 10.1 fl (7.0-11.0); MONO # 0.6 (0.1-0.6); MONO % 5.7 % (1.0-6.0); RBC 4.73 10^6/uL (3.5-6.1); WHITE BLOOD COUNT 10.5 10^3/ul (4.5-11.0)
[2018-04-01 20:33] LABS: URINE BILIRUBIN NEGATIVE (NEGATIVE); URINE BLOOD NEGATIVE (NEGATIVE); URINE GLUCOSE (UA) NEGATIVE (NEGATIVE); URINE LEUKOCYTE ESTERASE SMALL Leu/uL (NEGATIVE); URINE PROTEIN NEGATIVE mg/dL (<30 mg/dL)
[2018-04-01 20:34] LABS: URINE APPEARANCE CLEAR (CLEAR); URINE COLOR YELLOW (YELLOW)
[2018-04-01 20:35] LABS: ALB/GLOB RATIO 1.3 (1.1-1.8); ALBUMIN 4.2 g/dL (3.0-4.8); ALT/SGPT 24 U/L (7-56); AST/SGOT 21 U/L (14-36); BLOOD UREA NITROGEN 14 mg/dL (7-21); CALCIUM 9.1 mg/dL (8.4-10.5); GFR AFRICAN-AMERICAN > 60; GFR NON-AFRICAN AMERICAN > 60
[2018-04-01 20:37] LABS: PARTIAL THROMBOPLASTIN TIME 31.6 Seconds (25.1-36.5)
[2018-04-01 20:44] LABS: URINE BACTERIA FEW (NEG); URINE RBC NEGATIVE /hpf (0-2)
[2018-04-01 20:45] LABS: B-TYPE NATRIURETIC PEPTIDE 311 pg/mL (0-450); TROPONIN I < 0.01 ng/mL
[2018-04-01 23:57] LABS: INR 0.99 (0.93-1.08); PROTHROMBIN TIME 11.3 SECONDS (9.4-12.5)
--- NOTE | 2018-04-02 13:46 | CARD ---
APPROVED REPORT EKG Measurement Heart [id number] <Conclusion> Normal sinus rhythm Minimal voltage criteria for LVH, may be normal variant Borderline ECG
--- NOTE | 2018-04-02 16:14 | RAD ---
HISTORY: chest pain COMPARISON: Comparison chest 10/18/2017 FINDINGS: LUNGS: Minor bibasilar atelectasis PLEURA: No significant pleural effusion identified, no pneumothorax apparent. CARDIOVASCULAR: Normal. OSSEOUS STRUCTURES: . Old fracture deformity left distal clavicle. ORIF hardware also seen within the left humeral head and proximal shaft VISUALIZED UPPER ABDOMEN: Normal. OTHER FINDINGS: None. IMPRESSION: Minor bibasilar atelectasis
== END 2018-04-01 21:55 | disposition left against medical advice (07) ==
LOC: ED 19:42
DX: R07.9 Chest pain, unspecified (principal); E11.9 Type 2 diabetes mellitus without complications; M06.9 Rheumatoid arthritis, unspecified

== ENCOUNTER 2018-12-23 03:16 | Observation (INO) | payer MEDICARE, BC ==
[2018-12-23 03:49] VITALS: BMI 37.1
[2018-12-23 04:27] LABS: BASO # 0.05 K/mm3 (0.0-2.0); BASO % 0.6 % (0.0-3.0); EOS # 0.3 (0.0-0.7); EOS % 3.4 % (1.5-5.0); HEMOGLOBIN 12.6 g/dL (12.0-16.0); LYMPH # 2.9 (1.2-3.4); LYMPH % 36.1 % (22.0-35.0); MEAN CELL VOLUME 87.6 fl (80.0-105.0); MEAN CORPUSCULAR HEMOGLOBIN 28.3 pg (25.0-35.0); MEAN CORPUSCULAR HGB CONC 32.3 g/dl (31.0-37.0); MONO # 0.7 (0.1-0.6); MONO % 8.8 % (1.0-6.0); RBC 4.45 10^6/uL (3.5-6.1); RED CELL DISTRIBUTION WIDTH 15.8 % (11.5-14.5); WHITE BLOOD COUNT 7.9 10^3/uL (4.5-11.0)
[2018-12-23 04:31] LABS: ALB/GLOB RATIO 1.3 (1.1-1.8); ALT/SGPT 7 U/L (7-56); AST/SGOT 21 U/L (14-36); BLOOD UREA NITROGEN 18 mg/dL (7-21); CALCIUM 9.4 mg/dL (8.4-10.5); GFR NON-AFRICAN AMERICAN > 60
--- NOTE | 2018-12-23 04:41 | ED PDOC ---
Arrival/HPI - General Chief Complaint: Chest Pain Time Seen by Provider: 12/23/18 03:38 Historian: Patient - History of Present Illness Narrative History of Present Illness (Text): 12/23/18 04:43 68 year old female with history of syncope, abdominal hernia, DM, Rheumatoid Arthritis, Appendectomy, Breast CA (lumpectomy, radiation, last 15 yrs ago) presents to emergency department complaining of mid sternal chest pain since 1 pm earlier today with associated shortness of breath and dizziness. Pain is not exertional, as patient reports she was watching tv when it occurred and it has been constant since then. Patient has a history of reflux and usually takes a zantac to relieve the pain, but this time she notes the pain felt different and the zantac didn't work. Patient reports a normal stress test a year or two ago. Patient Patient denies any fevers, chills, headache, cough, abdominal pain, nausea, vomiting, diarrhea, back pain, neck pain, or any other complaints. Time/Duration: Other (1 pm) Symptom Onset: Gradual Symptom Course: Unchanged Activities at Onset: Light Context: Home Past Medical History - Provider Review Nursing Documentation Reviewed: Yes - Infectious Disease Hx of Infectious Diseases: None - Tetanus Immunization Tetanus Immunization: Unknown - Cardiac Hx Cardiac Disorders: No - Pulmonary Hx Respiratory Disorders: No - Neurological Hx Neurological Disorder: No - HEENT Hx HEENT Disorder: No - Renal Hx Renal Disorder: No - Endocrine/Metabolic Hx Endocrine Disorders: Yes Hx Diabetes Mellitus Type 2: Yes - Hematological/Oncological Hx Blood Disorders: Yes Hx Cancer: Yes - Integumentary Hx Dermatological Disorder: No - Musculoskeletal/Rheumatological Hx Musculoskeletal Disorders: Yes Hx Rheumatoid Arthritis: Yes - Gastrointestinal Hx Gastrointestinal Disorders: Yes Hx Gastroesophageal Reflux: Yes - Genitourinary/Gynecological Hx Genitourinary Disorders: No - Psychiatric Hx Psychophysiologic Disorder: Yes Hx Anxiety: Yes Hx Substance Use: No - Surgical History Hx Appendectomy: Yes Hx Orthopedic Surgery: Yes (L SHOULDER) Other/Comment: LUMPECTOMY - Anesthesia Hx Anesthesia Reactions: No Hx Malignant Hyperthermia: No - Suicidal Assessment Feels Threatened In Home Enviroment: No Family/Social History - Physician Review Nursing Documentation Reviewed: Yes Family/Social History: Unknown Family HX Smoking Status: Never Smoked Hx Alcohol Use: No Hx Substance Use: No Hx Substance Use Treatment: No Allergies/Home Meds Allergies/Adverse Reactions: Allergies ciprofloxacin [From Cipro] Adverse Reaction (Severe, Verified 12/23/18 03:45) VOMITING codeine Adverse Reaction (Severe, Verified 12/23/18 03:45) VOMITING Home Medications: Home Meds Medication Instructions Recorded Confirmed Aspirin [Aspir 81] 81 mg PO DAILY 11/12/13 12/23/18 DULoxetine [Cymbalta] 60 mg PO BID 11/12/13 12/23/18 Lorazepam [Ativan] 1 mg PO TID 11/12/13 12/23/18 Rosuvastatin Calcium [Crestor] 10 mg PO QAM 11/12/13 12/23/18 Glipizide [Glipizide ER] 10 mg PO BID 09/01/15 12/23/18 Celecoxib [Celebrex] 200 mg PO DAILY 10/18/17 12/23/18 Cholecalciferol [Vitamin D] 1,000 iu PO DAILY 10/18/17 12/23/18 Etanercept [Enbrel] 50 mg SC WED 10/18/17 12/23/18 Evening [place] Oil 2 cap PO DAILY 10/18/17 12/23/18 Folic Acid 1 mg PO DAILY 10/18/17 12/23/18 Insulin Degludec [Tresiba 10 unit SQ QAM 10/18/17 12/23/18 Flextouch U-100] Linagliptin [Tradjenta] 5 mg PO DAILY 10/18/17 12/23/18 Methotrexate 6 tab PO WED 10/18/17 12/23/18 Review of Systems - Physician Review All systems were reviewed & negative as marked: Yes - Review of Systems Constitutional: absent: Fevers Respiratory: SOB Cardiovascular: Chest Pain (mid sternal ) Gastrointestinal: absent: Abdominal Pain, Diarrhea, Nausea, Vomiting Genitourinary Female: absent: Urine Output Changes Musculoskeletal: absent: Back Pain, Neck Pain Skin: absent: Rash Neurological: Dizziness. absent: Headache Physical Exam Vital Signs Reviewed: Yes Vital Signs Temp Pulse Resp BP Pulse Ox 12/23/18 03:20 97.9 F 86 16 136/83 98 Temperature: Afebrile Blood Pressure: Normal Pulse: Regular Respiratory Rate: Tachypneic Appearance: Positive for: Well-Appearing, Non-Toxic, Comfortable Pain Distress: None Mental Status: Positive for: Alert and Oriented X 3 - Systems Exam Head: Present: Atraumatic, Normocephalic Pupils: Present: PERRL Extroacular Muscles: Present: EOMI Conjunctiva: Present: Normal Mouth: Present: Moist Mucous Membranes Neck: Present: Normal Range of Motion Respiratory/Chest: Present: Clear to Auscultation, Good Air Exchange. No: Respiratory Distress, Accessory Muscle Use Cardiovascular: Present: Regular Rate and Rhythm, Normal S1, S2. No: Murmurs Abdomen: No: Tenderness, Distention, Peritoneal Signs Back: Present: Normal Inspection Upper Extremity: Present: Normal Inspection. No: Cyanosis, Edema Lower Extremity: Present: Normal Inspection. No: Edema Neurological: Present: GCS=15, CN II-XII Intact, Speech Normal Skin: Present: Warm, Dry, Normal Color. No: Rashes Psychiatric: Present: Anxious (mildly ) Medical Decision Making ED Course and Treatment: 12/23/18 05:05 Impression: 68 year old female presents to emergency department for mid sternal chest pain with associated shortness of breath and dizziness since 1 pm. Plan: -- Labs -- Chest X-ray -- Urinalysis -- Reassess and disposition Prior Visits: Notes and results from previous visits were reviewed. Progress Notes: 12/23/18 05:06 EKG: Ordered, reviewed, and independently interpreted the EKG. Rate : 98 BPM Rhythm : NSR Interpretation : Normal axis, normal intervals, no ST elevations, ocassional PVCs 12/23/18 05:29 Chest X-ray, reviewed by radiologist: Mild left basilar atelectasis Patient given 324mg ASA. Results reviewed and discussed with patient. Will admit for further evaluation of chest pain and dyspnea. Case discussed with patient's PMD Dr. Cervantes who accepts patient to his service for admission. - Lab Interpretations Lab Results: Total Bilirubin 0.6 mg/dL (0.2-1.3) 12/23/18 04:10 AST 21 U/L (14-36) 12/23/18 04:10 ALT 7 U/L (7-56) 12/23/18 04:10 Alkaline Phosphatase 60 U/L (38-126) 12/23/18 04:10 Total Protein 7.1 g/dL (5.8-8.3) 12/23/18 04:10 Albumin 4.0 g/dL (3.0-4.8) 12/23/18 04:10 Globulin 3.0 gm/dL 12/23/18 04:10 Albumin/Globulin Ratio 1.3 (1.1-1.8) 12/23/18 04:10 - RAD Interpretation Radiology Orders: 12/23/18 04:06 CHEST PORTABLE [RAD] Stat - Medication Orders Current Medication Orders: Discontinued Medications Aspirin (Aspirin) 325 mg PO STAT STA Stop: 12/23/18 04:07 Last Admin: 12/23/18 04:19 Dose: 325 mg - Scribe Statement The provider has reviewed the documentation as recorded by the Scribe Kenneth Moore All medical record entries made by the Scribe were at my direction and personally dictated by me. I have reviewed the chart and agree that the record accurately reflects my personal performance of the history, physical exam, medical decision making, and the department course for this patient. I have also personally directed, reviewed, and agree with the discharge instructions and disposition. Disposition/Present on Arrival - Present on Arrival Any Indicators Present on Arrival: Yes History of DVT/PE: No History of Uncontrolled Diabetes: Yes Urinary Catheter: No History of Decub. Ulcer: No History Surgical Site Infection Following: None - Disposition Have Diagnosis and Disposition been Completed?: Yes Diagnosis: Chest pain Disposition: HOSPITALIZED Disposition Time: 05:59 Patient Problems: Current Active Problems Problem Status Onset Chest pain Acute Condition: STABLE
[2018-12-23 04:44] LABS: TROPONIN I < 0.01 ng/mL
[2018-12-23 05:39] LABS: PH,URINE 7.5 (4.7-8.0); URINE BILIRUBIN NEGATIVE (NEGATIVE); URINE BLOOD NEGATIVE (NEGATIVE); URINE GLUCOSE (UA) NEGATIVE (NEGATIVE); URINE LEUKOCYTE ESTERASE TRACE Leu/uL (NEGATIVE); URINE PROTEIN NEGATIVE mg/dL (<30 mg/dL); URINE UROBILINOGEN 0.2 E.U./dL (<1 E.U./dL)
[2018-12-23 05:53] LABS: URINE APPEARANCE CLEAR (CLEAR); URINE COLOR LIGHT YELLOW (YELLOW)
[2018-12-23 06:08] LABS: URINE EPITHELIAL CELLS 0 - 2 /hpf (0-5); URINE RBC 0 - 2 /hpf (0-2); URINE WBC 0 - 2 /hpf (0-6)
[2018-12-23 06:09] LABS: URINE BACTERIA FEW /hpf
[2018-12-23] MEDS: Insulin Lispro (humaLOG) LOW Coverage SC SCH ×5 (07:37→22:09)
[2018-12-23 08:04] LABS: HDL CHOLESTEROL 34 mg/dL (29-60)
[2018-12-23 08:15] LABS: LDL CHOLESTEROL 115 mg/dL (0-129)
--- NOTE | 2018-12-23 08:20 | CP.PCM.HP ---
<Naomy Watson - Last Filed: 12/23/18 12:01> History of Present Illness - History of Present Illness History of Present Illness: IM resident H&P note for Dr. Cervantes's service CC: Epigastric pain Patient is a 68 y/o female with PMHX of RA, Knee OA, IDDM2, syncope, breast cancer (s/p lumpectomy, and radiation), back pain with epidural 3 weeks ago, h/o intermittent constipation presenting with epigastric pain. Patient states the pain started yesterday at around 1 pm while she was seating watching TV. The pain is constant and is non radiating. States in the past when she gets this type of bed, it usually improves with zantac, however this time the pain remains. The epigastric pain persisted until 3 AM, thus patient decided to come in to the ED for evaluation. Pt states the pain improved a little with asa. Denies SOB. No headache, dizziness. last bowel movement was on , denies diarrhea. No fever or chills. PMhx: RA, Knee OA, IDDM2, syncope, breast cancer (s/p lumpectomy, and radiation)in 2001, back pain with epidural 3 weeks ago, depression, h/o intermittent constipation and gerd PSHx: lefdt breast lumpectomy in 2001, epidural 3 week s ago Family hx: non contributory Social: denies tobacco, alcohol or illicit drug use. Home meds: as per chart Allergy: cipro and codeine Present on Admission - Present on Admission Any Indicators Present on Admission: No History of DVT/PE: No History of Uncontrolled Diabetes: No Urinary Catheter: No Decubitus Ulcer Present: No Review of Systems - Constitutional Constitutional: absent: Chills, Fever, Headache, Lethargy, Malaise - EENT Eyes: absent: Blurred Vision, Change in Vision Ears: absent: Ear Pain, Disequilibrium, Dizziness Nose/Mouth/Throat: absent: Nasal Congestion, Sore Throat - Cardiovascular Cardiovascular: absent: Chest Pain, Chest Pain at Rest, Chest Pain with Activity, Claudication, Dyspnea, Dyspnea on Exertion, Edema, Leg Edema, Radiating Pain, Slow Heart Rate, Syncope - Respiratory Respiratory: absent: Cough, Dyspnea, Dyspnea on Exertion, Wheezing, Chest Congestion, Pain with Coughing - Gastrointestinal Gastrointestinal: Abdominal Pain (epigastric pain ), Constipation. absent: Belching, Bloating, Cramping, Dyspepsia, Dysphagia, Early Satiety, Fecal Incontinence, Heartburn, Hematemesis, Nausea, Vomiting - Genitourinary Genitourinary: absent: Dysuria, Hematuria, Pyuria, Nocturia, Urinary Incontinence, Urinary Hesitance - Musculoskeletal Musculoskeletal: absent: Atrophy, Back Pain, Joint Swelling, Stiffness, Tingling - Integumentary Integumentary: absent: Rash, Skin Pain, Wounds - Neurological Neurological: absent: Dizziness, Headaches, Syncope - Psychiatric Psychiatric: absent: Anxiety, Confusion, Depression - Endocrine Endocrine: absent: Fatigue, Flushing, Palpitations, Polydipsia, Polyphagia, Polyuria - Hematologic/Lymphatic Hematologic: absent: Easy Bleeding, Easy Bruising Past Patient History - Infectious Disease Hx of Infectious Diseases: None - Tetanus Immunizations Tetanus Immunization: Unknown - Past Social History Smoking Status: Never Smoked Alcohol: None Drugs: Denies Home Situation {Lives}: With Family - CARDIAC Hx Cardiac Disorders: No - PULMONARY Hx Respiratory Disorders: No - NEUROLOGICAL Hx Neurological Disorder: No - HEENT Hx HEENT Problems: No - RENAL Hx Chronic Kidney Disease: No - ENDOCRINE/METABOLIC Hx Endocrine Disorders: Yes Hx Diabetes Mellitus Type 2: Yes - HEMATOLOGICAL/ONCOLOGICAL Hx Blood Disorders: Yes Hx Cancer: Yes - INTEGUMENTARY Hx Dermatological Problems: No - MUSCULOSKELETAL/RHEUMATOLOGICAL Hx Musculoskeletal Disorders: Yes Hx Rheumatoid Arthritis: Yes - GASTROINTESTINAL Hx Gastrointestinal Disorders: Yes Hx Gastroesophageal Reflux: Yes - GENITOURINARY/GYNECOLOGICAL Hx Genitourinary Disorders: No - PSYCHIATRIC Hx Psychophysiologic Disorder: Yes Hx Anxiety: Yes Hx Substance Use: No - SURGICAL HISTORY Hx Appendectomy: Yes Hx Orthopedic Surgery: Yes (L SHOULDER) Other/Comment: LUMPECTOMY - ANESTHESIA Hx Anesthesia Reactions: No Hx Malignant Hyperthermia: No Meds Allergies/Adverse Reactions: Allergies Allergy/AdvReac Type Severity Reaction Status Date / Time ciprofloxacin [From Cipro] AdvReac Severe VOMITING Verified 12/23/18 11:45 codeine AdvReac Severe VOMITING Verified 12/23/18 11:45 Physical Exam - Constitutional Appears: No Acute Distress - Head Exam Head Exam: ATRAUMATIC, NORMAL INSPECTION, NORMOCEPHALIC - Eye Exam Eye Exam: EOMI, Normal appearance, PERRL. absent: Scleral icterus Pupil Exam: NORMAL ACCOMODATION - ENT Exam ENT Exam: Mucous Membranes Moist - Neck Exam Neck exam: Positive for: Normal Inspection. Negative for: Lymphadenopathy, Meningismus, Tenderness, Thyromegaly - Respiratory Exam Respiratory Exam: Clear to Auscultation Bilateral, NORMAL BREATHING PATTERN. a bsent: Decreased Breath Sounds, Rales, Rhonchi, Wheezes, Respiratory Distress, Stridor - Cardiovascular Exam Cardiovascular Exam: REGULAR RHYTHM, RRR, +S1, +S2, Systolic Murmur. absent: Bradycardia, Tachycardia, Diastolic murmur, Gallop, Irregular Rhythm, JVD, Rubs - GI/Abdominal Exam GI & Abdominal Exam: Normal Bowel Sounds, Soft, Tenderness (epigastric pain). absent: Distended, Firm, Guarding, Hypoactive Bowel Sounds, Pulsatile Mass, Rebound, Rigid - Extremities Exam Extremities exam: Positive for: normal inspection. Negative for: pedal edema - Back Exam Back exam: NORMAL INSPECTION - Neurological Exam Neurological exam: Alert, Oriented x3 - Psychiatric Exam Psychiatric exam: Normal Affect, Normal Mood - Skin Skin Exam: Dry, Intact, Normal Color, Warm Results - Vital Signs Recent Vital Signs: Last Vital Signs Temp 98 F 12/23/18 07:31 Pulse 89 12/23/18 07:31 Resp 17 12/23/18 07:31 BP 140/90 12/23/18 07:31 Pulse Ox 98 12/23/18 07:31 - Labs Result Diagrams: 12/23/18 04:10 12/23/18 04:10 Labs: Laboratory Results - last 24 hr 12/23/18 12/23/18 12/23/18 04:10 04:10 04:10 WBC 7.9 RBC 4.45 Hgb 12.6 Hct 39.0 MCV 87.6 MCH 28.3 MCHC 32.3 RDW 15.8 H Plt Count 237 MPV 10.0 Neut % (Auto) 51.1 Lymph % (Auto) 36.1 H Bracken % (Auto) 8.8 H Eos % (Auto) 3.4 Baso % (Auto) 0.6 Lymph # (Auto) 2.9 Bracken # (Auto) 0.7 H Eos # (Auto) 0.3 Baso # (Auto) 0.05 Absolute Neuts (auto) 4.05 Sodium 141 Potassium 3.9 Chloride 102 Carbon Dioxide 29 Anion Gap 13 BUN 18 Creatinine 0.8 Est GFR ( Amer) > 60 Est GFR (Non-Af Amer) > 60 POC Glucose (mg/dL) Random Glucose 89 Calcium 9.4 Magnesium 2.1 Total Bilirubin 0.6 AST 21 ALT 7 Alkaline Phosphatase 60 Lactate Dehydrogenase 338 Total Creatine Kinase 39 Troponin I < 0.01 Total Protein 7.1 Albumin 4.0 Globulin 3.0 Albumin/Globulin Ratio 1.3 Triglycerides 119 Cholesterol 178 LDL Cholesterol Direct 115 HDL Cholesterol 34 Urine Color Urine Appearance Urine pH Ur Specific [place] Urine Protein Urine Glucose (UA) Urine Ketones Urine Blood Urine Nitrate Urine Bilirubin Urine Urobilinogen Ur Leukocyte Esterase Urine RBC Urine WBC Ur Epithelial Cells Urine Bacteria 12/23/18 12/23/18 04:20 07:35 WBC RBC Hgb Hct MCV MCH MCHC RDW Plt Count MPV Neut % (Auto) Lymph % (Auto) Bracken % (Auto) Eos % (Auto) Baso % (Auto) Lymph # (Auto) Bracken # (Auto) Eos # (Auto) Baso # (Auto) Absolute Neuts (auto) Sodium Potassium Chloride Carbon Dioxide Anion Gap BUN Creatinine Est GFR ( Amer) Est GFR (Non-Af Amer) POC Glucose (mg/dL) 105 Random Glucose Calcium Magnesium Total Bilirubin AST ALT Alkaline Phosphatase Lactate Dehydrogenase Total Creatine Kinase Troponin I Total Protein Albumin Globulin Albumin/Globulin Ratio Triglycerides Cholesterol LDL Cholesterol Direct HDL Cholesterol Urine Color Light yellow Urine Appearance Clear Urine pH 7.5 Ur Specific [place] 1.010 Urine Protein Negative Urine Glucose (UA) Negative Urine Ketones Negative Urine Blood Negative Urine Nitrate Negative Urine Bilirubin Negative Urine Urobilinogen 0.2 Ur Leukocyte Esterase Trace H Urine RBC 0 - 2 Urine WBC 0 - 2 Ur Epithelial Cells 0 - 2 Urine Bacteria Few - EKG Data EKG Interpreted by: Myself EKG shows normal: Sinus rhythm Rate: Normal Assessment & Plan - Assessment and Plan (Free Text) Assessment: 1- Epigastric pain r/o atypical presentation of ACS, r/o gallstones, r/o GERD 2- IDDM2 3- RA 4- Anxiety 5- Back pain 6- Knee OA 7- Vitamin D deficiency 8- constipation 9- Depression Plan: Patient admitted on tele for observation; Troponin is negative x1, will trend. EKG with no acute ST/T weave changes. Will add tsh. Patient's s/p high dose asa in the ED. Will continue with 81 mg asa. Belt Polisher is consulted. Patient with 16.5% risk of cardiac event in the next 10 years according ot ASCVD 2013 risk calculator, will start lipitor 40 mg. Abdominal u/s ordered to evaluate the gallbladder. Will give miralax for constipation, and add protonix for possible gerd. For DM, patient's glucose is normal, will hold glipizide and insulin and check [id number]. Will start insulin sliding scale, and moderate carbohydrate diet. Will continue with cymbalta for depression and pain. On Ativan for anxiety. Continue folic acid and vitamin D. Patient's RA medications- enbrel and metothrexate are not due until Tuesday, thus will hold. Compressive devices for DVT prophylaxis. Patient seen, examined and case discussed with Dr. Cervantes. - Date & Time Date: 12/23/18 Time: 11:00 <Dung Cervantes S - Last Filed: 12/23/18 19:03> Results - Vital Signs Recent Vital Signs: Last Vital Signs Temp 97.8 F 12/23/18 12:00 Pulse 75 12/23/18 16:30 Resp 18 12/23/18 16:30 BP 117/74 12/23/18 12:00 Pulse Ox 98 12/23/18 09:01 - Labs Result Diagrams: 12/23/18 04:10 12/23/18 04:10 Labs: Laboratory Results - last 24 hr 12/23/18 12/23/18 12/23/18 04:10 04:10 04:10 WBC 7.9 RBC 4.45 Hgb 12.6 Hct 39.0 MCV 87.6 MCH 28.3 MCHC 32.3 RDW 15.8 H Plt Count 237 MPV 10.0 Neut % (Auto) 51.1 Lymph % (Auto) 36.1 H Bracken % (Auto) 8.8 H Eos % (Auto) 3.4 Baso % (Auto) 0.6 Lymph # (Auto) 2.9 Bracken # (Auto) 0.7 H Eos # (Auto) 0.3 Baso # (Auto) 0.05 Absolute Neuts (auto) 4.05 Sodium 141 Potassium 3.9 Chloride 102 Carbon Dioxide 29 Anion Gap 13 BUN 18 Creatinine 0.8 Est GFR ( Amer) > 60 Est GFR (Non-Af Amer) > 60 POC Glucose (mg/dL) Random Glucose 89 Calcium 9.4 Magnesium 2.1 Total Bilirubin 0.6 AST 21 ALT 7 Alkaline Phosphatase 60 Lactate Dehydrogenase 338 Total Creatine Kinase 39 Troponin I < 0.01 Total Protein 7.1 Albumin 4.0 Globulin 3.0 Albumin/Globulin Ratio 1.3 Triglycerides 119 Cholesterol 178 LDL Cholesterol Direct 115 HDL Cholesterol 34 TSH 3rd Generation Urine Color Urine Appearance Urine pH Ur Specific [place] Urine Protein Urine Glucose (UA) Urine Ketones Urine Blood Urine Nitrate Urine Bilirubin Urine Urobilinogen Ur Leukocyte Esterase Urine RBC Urine WBC Ur Epithelial Cells Urine Bacteria 12/23/18 12/23/18 12/23/18 04:20 07:35 10:20 WBC RBC Hgb Hct MCV MCH MCHC RDW Plt Count MPV Neut % (Auto) Lymph % (Auto) Bracken % (Auto) Eos % (Auto) Baso % (Auto) Lymph # (Auto) Brack[place] # (Auto) Eos # (Auto) Baso # (Auto) Absolute Neuts (auto) Sodium Potassium Chloride Carbon Dioxide Anion Gap BUN Creatinine Est GFR ( Amer) Est GFR (Non-Af Amer) POC Glucose (mg/dL) 105 Random Glucose Calcium Magnesium Total Bilirubin AST ALT Alkaline Phosphatase Lactate Dehydrogenase Total Creatine Kinase Troponin I < 0.01 Total Protein Albumin Globulin Albumin/Globulin Ratio Triglycerides Cholesterol LDL Cholesterol Direct HDL Cholesterol TSH 3rd Generation Urine Color Light yellow Urine Appearance Clear Urine pH 7.5 Ur Specific [place] 1.010 Urine Protein Negative Urine Glucose (UA) Negative Urine Ketones Negative Urine Blood Negative Urine Nitrate Negative Urine Bilirubin Negative Urine Urobilinogen 0.2 Ur Leukocyte Esterase Trace H Urine RBC 0 - 2 Urine WBC 0 - 2 Ur Epithelial Cells 0 - 2 Urine Bacteria Few 12/23/18 12/23/18 10:20 16:45 WBC RBC Hgb Hct MCV MCH MCHC RDW Plt Count MPV Neut % (Auto) Lymph % (Auto) Bracken % (Auto) Eos % (Auto) Baso % (Auto) Lymph # (Auto) Bracken # (Auto) Eos # (Auto) Baso # (Auto) Absolute Neuts (auto) Sodium Potassium Chloride Carbon Dioxide Anion Gap BUN Creatinine Est GFR ( Amer) Est GFR (Non-Af Amer) POC Glucose (mg/dL) Random Glucose Calcium Magnesium Total Bilirubin AST ALT Alkaline Phosphatase Lactate Dehydrogenase Total Creatine Kinase Troponin I < 0.01 Total Protein Albumin Globulin Albumin/Globulin Ratio Triglycerides Cholesterol LDL Cholesterol Direct HDL Cholesterol TSH 3rd Generation 3.12 Urine Color Urine Appearance Urine pH Ur Specific [place] Urine Protein Urine Glucose (UA) Urine Ketones Urine Blood Urine Nitrate Urine Bilirubin Urine Urobilinogen Ur Leukocyte Esterase Urine RBC Urine WBC Ur Epithelial Cells Urine Bacteria Assessment & Plan - Assessment and Plan (Free Text) Plan: Pt was seen and examined. I agree with the note of the medical accountant. I was involved in the plan of care.
[2018-12-23] MEDS ORDERED: GlipiZIDE 10 mg SR Tab PO SCH (10:00)
--- NOTE | 2018-12-23 10:30 | US ---
Date of service: 12/23/2018 HISTORY: Chest pain, epigastric pain COMPARISON: 12/23/2015. TECHNIQUE: Sonographic evaluation of the right upper quadrant of the abdomen. FINDINGS: LIVER: Measures 15.1 cm in length. Hepatopedal blood flow. Fatty infiltration manifest ultrasonographically as increased echogenicity of the liver parenchyma. No mass. No intrahepatic bile duct dilatation. GALLBLADDER: Unremarkable. No gallstones. COMMON BILE DUCT: Measures 8.0 mm. No stones. No dilatation. PANCREAS: Unremarkable as visualized. No mass. No ductal dilatation. RIGHT KIDNEY: Measures 4.3 x 10.1 cm in length. Normal echogenicity. No calculus, mass, or hydronephrosis. AORTA: No aneurysmal dilatation. IVC: Unremarkable. OTHER FINDINGS: None . IMPRESSION: Hepatic steatosis. Otherwise unremarkable study. No significant interval change compared to the prior examination(s).
[2018-12-23] MEDS: Cholecalciferol 1,000 INTLU TAB PO SCH (10:57)
--- NOTE | 2018-12-23 12:02 | RAD ---
Date of service: 12/23/2018 HISTORY: chest pain COMPARISON: 04/01/2018 FINDINGS: LUNGS: No active pulmonary disease. PLEURA: No significant pleural effusion identified, no pneumothorax apparent. CARDIOVASCULAR: No atherosclerotic calcification present No radiographic findings to suggest acute or significant cardiovascular disease. OSSEOUS STRUCTURES: No significant abnormalities. Stable postoperative changes proximal left humerus. VISUALIZED UPPER ABDOMEN: Normal. OTHER FINDINGS: None. IMPRESSION: No active disease. No significant interval change compared to the prior examination(s).
[2018-12-23] MEDS: POLYETHYLENE GLYCOL 3350 17 GM/Dose PACKET PO SCH (12:34)
[2018-12-23] MEDS: Pantoprazole 40 mg EC Tab PO SCH (12:34)
--- NOTE | 2018-12-23 15:47 | CON ---
DATE OF CONSULTATION: 12/23/2018 REQUESTING PHYSICIAN: Dung Cervantes MD REASON FOR CONSULTATION: Chest and epigastric discomfort. HISTORY: This is a 68-year-old woman well known to me with a history of diabetes and hyperlipidemia, who presents to the emergency room complaining of retrosternal and epigastric chest discomfort. She states that her pain began yesterday afternoon and lingered on most of the day. She took Zantac, which she feels usually helps these sort of symptoms, but did not notice improvement. Her pain worsened overnight and she became concerned and presented to the emergency room. Initial electrocardiogram shows no acute abnormalities. She did undergo stress testing last April 2018 with Persantine stress test that showed no evidence of ischemia with an ejection fraction of 59%. PAST HISTORY: Notable for the problems mentioned above. She did have breast cancer for which she underwent radiation and lumpectomy 15 years ago. She also has a history of prior appendectomy and rheumatoid arthritis. FAMILY HISTORY: Father at age 61 from pneumonia. Mother at age 61 from cancer. One brother at age 58 from bladder cancer. SOCIAL HISTORY: She is a former smoker, having quit many years ago. She is . CURRENT MEDICATIONS: Aspirin, Ativan, Celebrex, Crestor, Cymbalta, Enbrel, glipizide, methotrexate, Tradjenta, Tresiba, and vitamin D supplements. ALLERGIES: SHE HAS HAD A REACTION TO CODEINE AND CIPROFLOXACIN IN THE PAST. REVIEW OF SYSTEMS: A 10-point review of systems is always unremarkable. PHYSICAL EXAMINATION: GENERAL: She is an anxious-appearing middle-aged woman. VITAL SIGNS: Blood pressure is 138/76 with pulse of 76 and sinus. Respirations are 16. She is afebrile. HEENT: Normocephalic, atraumatic. NECK: Supple. No JVD noted. CHEST: Few scattered rhonchi heard. HEART: PMI in normal position. No pathological murmurs or gallops noted. ABDOMEN: Soft and nontender with normoactive bowel sounds. EXTREMITIES: No edema. SKIN: Warm and dry. PSYCHIATRIC: Normal mood and affect. NEUROLOGIC: Alert and oriented x3. No gross motor or sensory deficits notable. DIAGNOSTIC DATA: Two sets of cardiac enzymes are negative. Potassium 3.9, BUN and creatinine 18 and 0.8. White count 7.9, hemoglobin and hematocrit 12.6 and 39.0, platelet count of 237,000. Cholesterol is 178 with an LDL of 115, HDL 34, triglycerides of 119. Chest x-ray reveals normal cardiac silhouette with clear lung florentino. Electrocardiogram reveals sinus rhythm with nonspecific ST-T abnormalities. IMPRESSION: 1. Epigastric and chest discomfort, sounds more suspicious for GI cause given its unrelenting nature and characteristics. She did have an unremarkable stress test within the past year. 2. Rest of the problems as noted. RECOMMENDATIONS: Telemetry measuring would be reasonable. A GI evaluation is encouraged. Followup electrocardiogram and troponin will be checked again. Further recommendations will be made based upon her clinical course and results. See above findings. Thank you for this consultation and I will be happy to follow along as needed. Mynor Maurer MD
[2018-12-23] MEDS ORDERED: Pneumococcal 23-Valent Vaccine IM ONE (16:47)
[2018-12-23] MEDS ORDERED: Influenza Vaccine 60 mcg/0.5 mL SYR (4YR UP) IM ONE (16:47)
[2018-12-23 23:40] VITALS: O2SAT 95
--- NOTE | 2018-12-24 00:57 | DS ---
HOSPITAL COURSE: The patient was seen and examined, I do agree with the note of the medical support specialist. The patient was complaining of chest pain, it was atypical. She had an ultrasound done that shows hepatic steatosis, no significant abnormality. She was seen by Dr. Maurer and I did speak to him. The patient had a stress test about 1 year ago. She had troponins which were negative. The patient is going to continue with Cymbalta for anxiety. She is on atorvastatin for dyslipidemia. She is currently comfortable. The patient was seen by me and examined, I do agree with the note of the medical support specialist. I was involved in the plan of care. Dung Cervantes MD
[2018-12-24 05:24] VITALS: PULSE 81
[2018-12-24] MEDS: Pantoprazole 40 mg EC Tab PO SCH (05:44)
[2018-12-24 06:25] VITALS: BP 118/74; RESP 20; TEMP 97.7
--- NOTE | 2018-12-24 09:00 | CP.PCM.DIS ---
<Naomy Watson - Last Filed: 12/24/18 11:05> Provider - Provider Date of Admission: 12/23/18 05:59 Attending physician: Dung Cervantes MD Primary care physician: Helen Consults: 12/23/18 06:00 Consult [Physician Consult] Routine Comment: Consulting Provider: Mynor Maurer Consulting Physician: Mynor Maurer Reason for Consult: chest pain 12/23/18 16:47 Inpatient DIFFERENTIAL TESTER Core Measures Referral Routine Comment: Physician Instructions: Reason For Exam: EVALUATION Transition In Care/Readmission Reduction Routine Comment: Physician Instructions: Reason For Exam: EVALUATION 12/23/18 16:50 Social Work Referral Routine Comment: DSICHARGE PLANNING TO HOME Physician Instructions: Reason For Exam: EVALUATION Time Spent in preparation of Discharge (in minutes): 45 Diagnosis - Discharge Diagnosis (1) Atypical angina Status: Resolved (2) Hepatic steatosis Status: Chronic (3) Rheumatoid arthritis Status: Chronic (4) Osteoarthritis Status: Chronic (5) Diabetes mellitus Status: Chronic (6) History of breast cancer Status: Chronic (7) Syncope Status: Chronic (8) Dyslipidemia Status: Chronic Hospital Course - Lab Results Lab Results: Micro Results 12/23/18 05:30 Urine,Clean Catch Urine Culture - Final No Growth (<1,000 CFU/ML) Most Recent Lab Values WBC 7.9 10^3/uL (4.5-11.0) 12/23/18 04:10 RBC 4.45 10^6/uL (3.5-6.1) 12/23/18 04:10 Hgb 12.6 g/dL (12.0-16.0) 12/23/18 04:10 Hct 39.0 % (36.0-48.0) 12/23/18 04:10 MCV 87.6 fl (80.0-105.0) 12/23/18 04:10 MCH 28.3 pg (25.0-35.0) 12/23/18 04:10 MCHC 32.3 g/dl (31.0-37.0) 12/23/18 04:10 RDW 15.8 % (11.5-14.5) H 12/23/18 04:10 Plt Count 237 10^3/uL (120.0-450.0) 12/23/18 04:10 MPV 10.0 fl (7.0-11.0) 12/23/18 04:10 Neut % (Auto) 51.1 % (50.0-68.0) 12/23/18 04:10 Lymph % (Auto) 36.1 % (22.0-35.0) H 12/23/18 04:10 Eddy % (Auto) 8.8 % (1.0-6.0) H 12/23/18 04:10 Eos % (Auto) 3.4 % (1.5-5.0) 12/23/18 04:10 Baso % (Auto) 0.6 % (0.0-3.0) 12/23/18 04:10 Lymph # (Auto) 2.9 (1.2-3.4) 12/23/18 04:10 Eddy # (Auto) 0.7 (0.1-0.6) H 12/23/18 04:10 Eos # (Auto) 0.3 (0.0-0.7) 12/23/18 04:10 Baso # (Auto) 0.05 K/mm3 (0.0-2.0) 12/23/18 04:10 Absolute Neuts (auto) 4.05 (1.4-6.5) 12/23/18 04:10 Sodium 141 mmol/L (132-148) 12/23/18 04:10 Potassium 3.9 mmol/L (3.6-5.0) 12/23/18 04:10 Chloride 102 mmol/L (98-107) 12/23/18 04:10 Carbon Dioxide 29 mmol/L (21-33) 12/23/18 04:10 Anion Gap 13 (10-20) 12/23/18 04:10 BUN 18 mg/dL (7-21) 12/23/18 04:10 Creatinine 0.8 mg/dl (0.7-1.2) 12/23/18 04:10 Est GFR ( Amer) > 60 12/23/18 04:10 Est GFR (Non-Af Amer) > 60 12/23/18 04:10 POC Glucose (mg/dL) 105 mg/dL (65-110) 12/23/18 07:35 Random Glucose 89 mg/dL (70-110) 12/23/18 04:10 Hemoglobin A1c 5.8 % (4.2-6.5) 12/23/18 10:20 Calcium 9.4 mg/dL (8.4-10.5) 12/23/18 04:10 Magnesium 2.1 mg/dL (1.7-2.2) 12/23/18 04:10 Total Bilirubin 0.6 mg/dL (0.2-1.3) 12/23/18 04:10 AST 21 U/L (14-36) 12/23/18 04:10 ALT 7 U/L (7-56) 12/23/18 04:10 Alkaline Phosphatase 60 U/L (38-126) 12/23/18 04:10 Lactate Dehydrogenase 338 U/L (333-699) 12/23/18 04:10 Total Creatine Kinase 39 U/L (35-230) 12/23/18 04:10 Troponin I < 0.01 ng/mL 12/23/18 16:45 Total Protein 7.1 g/dL (5.8-8.3) 12/23/18 04:10 Albumin 4.0 g/dL (3.0-4.8) 12/23/18 04:10 Globulin 3.0 gm/dL 12/23/18 04:10 Albumin/Globulin Ratio 1.3 (1.1-1.8) 12/23/18 04:10 Triglycerides 119 mg/dL (35-160) 12/23/18 04:10 Cholesterol 178 mg/dL (130-200) 12/23/18 04:10 LDL Cholesterol Direct 115 mg/dL (0-129) 12/23/18 04:10 HDL Cholesterol 34 mg/dL (29-60) 12/23/18 04:10 TSH 3rd Generation 3.12 mIU/mL (0.46-4.68) 12/23/18 10:20 Urine Color Light yellow (YELLOW) 12/23/18 04:20 Urine Appearance Clear (CLEAR) 12/23/18 04:20 Urine pH 7.5 (4.7-8.0) 12/23/18 04:20 Ur Specific [place] 1.010 (1.005-1.035) 12/23/18 04:20 Urine Protein Negative mg/dL (<30 mg/dL) 12/23/18 04:20 Urine Glucose (UA) Negative mg/dL (NEGATIVE) 12/23/18 04:20 Urine Ketones Negative mg/dL (NEGATIVE) 12/23/18 04:20 Urine Blood Negative (NEGATIVE) 12/23/18 04:20 Urine Nitrate Negative (NEGATIVE) 12/23/18 04:20 Urine Bilirubin Negative (NEGATIVE) 12/23/18 04:20 Urine Urobilinogen 0.2 E.U./dL (<1 E.U./dL) 12/23/18 04:20 Ur Leukocyte Esterase Trace Sanjiv/uL (NEGATIVE) H 12/23/18 04:20 Urine RBC 0 - 2 /hpf (0-2) 12/23/18 04:20 Urine WBC 0 - 2 /hpf (0-6) 12/23/18 04:20 Ur Epithelial Cells 0 - 2 /hpf (0-5) 12/23/18 04:20 Urine Bacteria Few /hpf (NONE) 12/23/18 04:20 - Hospital Course Hospital Course: Patient is a RA, Knee OA, constipation, IDDM2, syncope, breast cancer (s/p lumpectomy, and radiation), back pain present with epigastric pain not relieved with zantac. Patient was admitted for observation to rule out atypical presentation of ACS. Troponin x3 was normal, EKG was normal with no acute ST/T wave changes. No acute events on tele, tsh was normal. Patient also had abdominal u/s to rule out gall bladder component, which revealed hepatic steatosis. Patient was seen by director process improvement and is cleared for discharged. Patient was normoglycemic in the hospital, hgbA1C of 5.8, patient advised to stop insulin, and follow up with primary care doctor in 1 week to see if she needs to resume the insulin. Based on patient's ASCVD risk, patient requires high intensity statin, however patient states she has intolerance with high dose statin, thus patient is encouraged to follow up with pmd to try other statin class. Discharge diet: low fat, heart healthy, 2 gram sodium, with controlled carbohydrate. Activity: May resume normal activity. - Date & Time of H&P Date of H&P: 12/23/18 Time of H&P: 08:20 Discharge Exam - Head Exam Head Exam: ATRAUMATIC, NORMAL INSPECTION, NORMOCEPHALIC - Eye Exam Eye Exam: Normal appearance - ENT Exam ENT Exam: Mucous Membranes Moist - Neck Exam Neck exam: Normal Inspection - Respiratory Exam Respiratory Exam: Clear to PA & Lateral, NORMAL BREATHING PATTERN, UNREMARKABLE. absent: Rales, Rhonchi, Wheezes, Respiratory Distress, Stridor - Cardiovascular Exam Cardiovascular Exam: REGULAR RHYTHM, +S1, +S2. absent: Bradycardia, Tachycardia, Gallop, Irregular Rhythm, JVD, RRR, Rubs, Systolic Murmur - GI/Abdominal Exam GI & Abdominal Exam: Normal Bowel Sounds, Unremarkable. absent: Distended, Firm, Guarding, Rebound, Rigid, Soft, Tenderness Additional comments: + obese abdomen. - Extremities Exam Extremities exam: normal inspection - Back Exam Back exam: NORMAL INSPECTION - Neurological Exam Neurological exam: Alert, Oriented x3, Reflexes Normal - Psychiatric Exam Psychiatric exam: Normal Affect, Normal Mood - Skin Skin Exam: Dry, Intact, Normal Color, Warm Discharge Plan - Follow Up Plan Condition: STABLE Disposition: HOME/ ROUTINE Patient education suggested?: Yes Instructions: Chest Pain (ED) Additional Instructions: Please follow up with your primary care doctor and director process improvement in 1-2 weeks Continue with your home medications Your sugar was normal in the hospital without insulin, please hold insulin until you see your primary care doctor or your player development executive as outpatient Please return if the symptoms returns or call 911. Referrals: Dung Cervantes MD [Staff Provider] - Mynor Maurer MD [Staff Provider] - <Dung Cervantes - Last Filed: 12/24/18 16:05> Provider - Provider Date of Admission: 12/23/18 05:59 Attending physician: Dung Cervantes MD Consults: 12/23/18 06:00 Consult [Physician Consult] Routine Comment: Consulting Provider: Mynor Maurer Consulting Physician: Mynor Maurer Reason for Consult: chest pain 12/23/18 16:47 Inpatient DIFFERENTIAL TESTER Core Measures Referral Routine Comment: Physician Instructions: Reason For Exam: EVALUATION Transition In Care/Readmission Reduction Routine Comment: Physician Instructions: Reason For Exam: EVALUATION 12/23/18 16:50 Social Work Referral Routine Comment: DSICHARGE PLANNING TO HOME Physician Instructions: Reason For Exam: EVALUATION Hospital Course - Lab Results Lab Results: Micro Results 12/23/18 05:30 Urine,Clean Catch Urine Culture - Final No Growth (<1,000 CFU/ML) Most Recent Lab Values WBC 7.9 10^3/uL (4.5-11.0) 12/23/18 04:10 RBC 4.45 10^6/uL (3.5-6.1) 12/23/18 04:10 Hgb 12.6 g/dL (12.0-16.0) 12/23/18 04:10 Hct 39.0 % (36.0-48.0) 12/23/18 04:10 MCV 87.6 fl (80.0-105.0) 12/23/18 04:10 MCH 28.3 pg (25.0-35.0) 12/23/18 04:10 MCHC 32.3 g/dl (31.0-37.0) 12/23/18 04:10 RDW 15.8 % (11.5-14.5) H 12/23/18 04:10 Plt Count 237 10^3/uL (120.0-450.0) 12/23/18 04:10 MPV 10.0 fl (7.0-11.0) 12/23/18 04:10 Neut % (Auto) 51.1 % (50.0-68.0) 12/23/18 04:10 Lymph % (Auto) 36.1 % (22.0-35.0) H 12/23/18 04:10 Eddy % (Auto) 8.8 % (1.0-6.0) H 12/23/18 04:10 Eos % (Auto) 3.4 % (1.5-5.0) 12/23/18 04:10 Baso % (Auto) 0.6 % (0.0-3.0) 12/23/18 04:10 Lymph # (Auto) 2.9 (1.2-3.4) 12/23/18 04:10 Eddy # (Auto) 0.7 (0.1-0.6) H 12/23/18 04:10 Eos # (Auto) 0.3 (0.0-0.7) 12/23/18 04:10 Baso # (Auto) 0.05 K/mm3 (0.0-2.0) 12/23/18 04:10 Absolute Neuts (auto) 4.05 (1.4-6.5) 12/23/18 04:10 Sodium 141 mmol/L (132-148) 12/23/18 04:10 Potassium 3.9 mmol/L (3.6-5.0) 12/23/18 04:10 Chloride 102 mmol/L (98-107) 12/23/18 04:10 Carbon Dioxide 29 mmol/L (21-33) 12/23/18 04:10 Anion Gap 13 (10-20) 12/23/18 04:10 BUN 18 mg/dL (7-21) 12/23/18 04:10 Creatinine 0.8 mg/dl (0.7-1.2) 12/23/18 04:10 Est GFR ( Amer) > 60 12/23/18 04:10 Est GFR (Non-Af Amer) > 60 12/23/18 04:10 POC Glucose (mg/dL) 105 mg/dL (65-110) 12/23/18 07:35 Random Glucose 89 mg/dL (70-110) 12/23/18 04:10 Hemoglobin A1c 5.8 % (4.2-6.5) 12/23/18 10:20 Calcium 9.4 mg/dL (8.4-10.5) 12/23/18 04:10 Magnesium 2.1 mg/dL (1.7-2.2) 12/23/18 04:10 Total Bilirubin 0.6 mg/dL (0.2-1.3) 12/23/18 04:10 AST 21 U/L (14-36) 12/23/18 04:10 ALT 7 U/L (7-56) 12/23/18 04:10 Alkaline Phosphatase 60 U/L (38-126) 12/23/18 04:10 Lactate Dehydrogenase 338 U/L (333-699) 12/23/18 04:10 Total Creatine Kinase 39 U/L (35-230) 12/23/18 04:10 Troponin I < 0.01 ng/mL 12/23/18 16:45 Total Protein 7.1 g/dL (5.8-8.3) 12/23/18 04:10 Albumin 4.0 g/dL (3.0-4.8) 12/23/18 04:10 Globulin 3.0 gm/dL 12/23/18 04:10 Albumin/Globulin Ratio 1.3 (1.1-1.8) 12/23/18 04:10 Triglycerides 119 mg/dL (35-160) 12/23/18 04:10 Cholesterol 178 mg/dL (130-200) 12/23/18 04:10 LDL Cholesterol Direct 115 mg/dL (0-129) 12/23/18 04:10 HDL Cholesterol 34 mg/dL (29-60) 12/23/18 04:10 TSH 3rd Generation 3.12 mIU/mL (0.46-4.68) 12/23/18 10:20 Urine Color Light yellow (YELLOW) 12/23/18 04:20 Urine Appearance Clear (CLEAR) 12/23/18 04:20 Urine pH 7.5 (4.7-8.0) 12/23/18 04:20 Ur Specific [place] 1.010 (1.005-1.035) 12/23/18 04:20 Urine Protein Negative mg/dL (<30 mg/dL) 12/23/18 04:20 Urine Glucose (UA) Negative mg/dL (NEGATIVE) 12/23/18 04:20 Urine Ketones Negative mg/dL (NEGATIVE) 12/23/18 04:20 Urine Blood Negative (NEGATIVE) 12/23/18 04:20 Urine Nitrate Negative (NEGATIVE) 12/23/18 04:20 Urine Bilirubin Negative (NEGATIVE) 12/23/18 04:20 Urine Urobilinogen 0.2 E.U./dL (<1 E.U./dL) 12/23/18 04:20 Ur Leukocyte Esterase Trace Sanjiv/uL (NEGATIVE) H 12/23/18 04:20 Urine RBC 0 - 2 /hpf (0-2) 12/23/18 04:20 Urine WBC 0 - 2 /hpf (0-6) 12/23/18 04:20 Ur Epithelial Cells 0 - 2 /hpf (0-5) 12/23/18 04:20 Urine Bacteria Few /hpf (NONE) 12/23/18 04:20 - Hospital Course Hospital Course: Pt is seen and examined by me. I have reviewed the note of the medical referral coordinator and I agree with the note. I have discussed the asssessment and the plan with the resident. I have reviewed the medications and last labs.
[2018-12-24] MEDS: POLYETHYLENE GLYCOL 3350 17 GM/Dose PACKET PO SCH ×2 (09:47→09:49)
[2018-12-24] MEDS: Cholecalciferol 1,000 INTLU TAB PO SCH (09:47)
[2018-12-24] MEDS: Insulin Lispro (humaLOG) LOW Coverage SC SCH (09:47)
--- NOTE | 2018-12-24 22:03 | DS ---
HOSPITAL COURSE: The patient was seen and examined. I do agree with the note of medical delivery technician. Plan of care was discussed. The patient had troponin x3 which were negative. She had an ultrasound which is also normal. She was seen by Cardiology and cleared for discharge. She had a stress test done about 1 year ago. This is most likely reflux. The patient is going to follow up as an outpatient with me in the office within 1 week. She has an appointment that was made for her for 12/28. CONDITION: Stable. ACTIVITY: Increase as tolerated. Dung Cervantes MD
--- NOTE | 2018-12-25 08:55 | PN ---
DATE: 12/24/2018 SUBJECTIVE: The patient is seen, sitting in bed, on telemetry. She has had no further chest or epigastric discomfort. Cardiac enzymes are negative. Abdominal ultrasound reveals fatty liver with no evidence of additional abnormalities. PHYSICAL EXAMINATION: GENERAL: She is a middle-aged woman who appears comfortable at the present time. VITAL SIGNS: Blood pressure is 116/76 with pulse of 80 and sinus respirations of 14. She is afebrile. HEENT: No JVD. CHEST: Clear to auscultation and percussion. HEART: PMI in normal position. No pathological gallops noted. ABDOMEN: Soft, nontender with no active bowel sounds. EXTREMITIES: No edema. DIAGNOSTIC DATA: All cardiac enzymes are negative. IMPRESSION: Chest and epigastric discomfort, etiology unclear. This appears fairly atypical for cardiac disease. Did have a stress test last summer, which showed no abnormalities. The rest of problems as noted. RECOMMENDATIONS: From cardiac standpoint, discharge home at this time would be appropriate. Outpatient followup will be arranged as needed if she has recurrent symptoms. Mynor Maurer MD
--- NOTE | 2018-12-25 15:17 | CARD ---
APPROVED REPORT Date of service: 12/23/2018 EKG Measurement Heart [id number] <Conclusion> Sinus rhythm with occasional premature ventricular complexes Otherwise normal ECG
== END 2018-12-24 11:59 | disposition home or self-care (01) ==
LOC: ED 03:16 → ERH 05:59 → 2RNO 09:10
PROVIDERS: ADMIT Internal Medicine Nephrology; ATTEND Internal Medicine Nephrology
DX: I20.9 Angina pectoris, unspecified (principal); R07.89 Other chest pain; E11.9 Type 2 diabetes mellitus without complications; K59.00 Constipation, unspecified; K21.9 Gastro-esophageal reflux disease without esophagitis; K76.0 Fatty (change of) liver, not elsewhere classified; E55.9 Vitamin D deficiency, unspecified; M06.9 Rheumatoid arthritis, unspecified; F41.9 Anxiety disorder, unspecified; E78.5 Hyperlipidemia, unspecified; F32.9 Major depressive disorder, single episode, unspecified; M17.10 Unilateral primary osteoarthritis, unspecified knee; Z85.3 Personal history of malignant neoplasm of breast; Z92.3 Personal history of irradiation; Z87.891 Personal history of nicotine dependence; Z79.4 Long term (current) use of insulin
CPT/HCPCS: 36415; 71045; 76705; 80053; 80061; 81001; 82550; 82948; 83036; 83615; 83735; 84443; 84484; 85025; 87086; 93005; 99285; G0378